=== PATIENT | female | born 1975 | race Two or more races ===

== ENCOUNTER 2021-07-10 06:30 | Day surgery (SDC) | payer OTHER ==
[~2021-07-10 06:30] MED LIST: ATACAND32 MG PO; HYDRALAZINE HC100 MG PO; LANTUS SOL100 UNIT/1; METFORMIN HCL1000 M2 PO; TOPROL XL200 MG PO
== END 2021-07-10 12:00 | disposition home or self-care (01) ==
LOC: CIR.AMB 06:30
PROVIDERS: ATTEND Otolaryngology Otology & Neurotology
DX: H80.01 Otosclerosis involving oval window, nonobliterative, right ear (principal)